=== PATIENT | female | born 1970 | race Caucasian/White ===

== ENCOUNTER 2021-06-22 18:48 | Emergency (ER) | payer MEDICAID ==
[~2021-06-22] VITALS: Ht 134.6 cm; Wt 81.8 kg
[~2021-06-22 18:48] MED LIST: HYDR25TA PO; LISI20TA PO
[2021-06-22] MEDS ORDERED: AmLODIPine BESYLATE 5 MG TABLET PO ONE (19:45)
[2021-06-22] MEDS ORDERED: GABA-1181 PO (21:25)
[2021-06-22] MEDS ORDERED: NAPR-1025 PO (21:25)
[2021-06-22 21:58] VITALS: BP 201/101
== END 2021-06-22 22:15 | disposition home or self-care (01) ==
LOC: EMS 18:55
DX: M13.811 Other specified arthritis, right shoulder (principal); M77.8 Other enthesopathies, not elsewhere classified; I10 Essential (primary) hypertension
CPT/HCPCS: 99284; 73030-TC; 73110-TC; Z7502; Z7610